=== PATIENT | female | born 1940 | race Caucasian/White ===

== ENCOUNTER 2024-01-20 15:22 | Emergency (ER) | payer MEDICARE, SELFPAY ==
[2024-01-20 15:25] VITALS: BP 161/93; BMI 20.8
--- NOTE | 2024-01-20 16:24 | ED.GENMED ---
History of Present Illness
General
Chief Complaint: Musculo-Skeletal Complaint
Source: patient
Time Seen by Provider: 01/20/24 16:14
Travel History
Have you had any contact with someone who has COVID-19?: No
Do you have any symptoms of coronavirus? Fever > 100 degrees, chills, cough, shortness of breath, sore throat, loss of taste or smell, muscle aches, or headache?: No
History of Present Illness
History of Present Illness:
83-year-old female with past medical history of mitral valve disease presenting to the emergency department for evaluation of left-sided rib pain that started 3 days ago after patient had bent over a garbage can having the garbage can press into her
chest wall causing her pain. Patient states that the pain was mild to moderate over the last 2 days but today seem to be a little bit more persistent prompting her to come to the ER as she was concerned she may have broken a rib. Patient denies
any other injuries sustained. She denies any difficulty breathing, coughing, fevers, shortness of breath, palpitations, diaphoresis or any other symptoms.
Past History
Past History
ED Past Medical History: Valvular disease
ED Past Surgical History: None
Social History
Tobacco: Non-smoker
Alcohol: Occasional
Drug: None
Personal:
Living: with family
Review of Systems
Review of Systems
All Other Systems: ROS reviewed and negative except as documented in HPI and ROS
Phy Exam
Physical Exam
Physical Exam:
GENERAL: Alert , in no apparent distress
EYE: conjunctiva clear
NECK: Supple
ENT: o/p clr, mmm.
CARDIAC: Regular rate and rhythm, systolic murmur heard best at the left sternal border
LUNGS: Clear breath sounds bilaterally, no acute respiratory distress, no wheezes/rales/rhonchi, clearly reproducible chest wall tenderness just inferior to the left breast
NEUROLOGICAL: Alert and oriented
SKIN: Warm and dry, skin intact.
MUSCULOSKELETAL: well perfused.
PSYCH: Normal and appropriate interaction.
Scores
Heart Failure Risk
Heart Failure Risk Score: Not Applicable
Heart Score for Chest Pain Patients
STEMI patient?: Not applicable
Withdrawal Assessment of Alcohol
Withdrawal Assessment Completed?: Not applicable
Course
Orders/Labs/Results
Orders:
Orders
01/20/24 15:24
CXR2 [CR Chest - 2 Views ] Urgent
Comment:
Reason For Exam: left rib pain
01/20/24 16:23
Electrocardiogram (*1) Urgent
Reason for Study: Chest Pain
EKG- Treatment ONCE
Vital Signs
Initial and Last Documented VS:
Initial Vital Signs
Temp Pulse Resp BP Pulse Ox
98.2 F 69 16 161/93 99
01/20/24 15:25 01/20/24 15:25 01/20/24 15:25 01/20/24 15:25 01/20/24 15:25
Last Documented Vital Signs
Temp Pulse Resp BP Pulse Ox
98.2 F 69 16 161/93 99
01/20/24 15:25 01/20/24 15:25 01/20/24 15:25 01/20/24 15:25 01/20/24 15:25
MDM/Problems Addressed
Differential Diagnosis Includes:
Rib fracture, costochondral injury, will check an EKG although ACS is certainly much lower on differential given the reproducible pain as well as the mechanism of her injury
MDM/Problems Addressed:
83-year-old female present emergency department for evaluation of left chest wall pain started after bending over a garbage can. Pain worsened today prompting her to come to the emergency department. Exam does seem to be most consistent with a
muscular etiology for her pain however given the worsening nature and location of her pain we will check an EKG. X-ray was ordered from triage which did not show any acute abnormalities. I did discuss with the patient that he have a very small or
subtle nondisplaced rib fracture which could be potentially missed on x-ray as well as possibility for a costochondral injury which would not be seen on imaging here. Patient will continue NSAIDs/Tylenol as needed for pain. Follow-up with primary
care provider. She will otherwise be stable for discharge home.
*Pulse Oximetry
Patient hypoxic: no
*EKG
Interpreted by ED Provider?: Yes
Comparison EKG: no changes
Heart Rate: 64
Rate: normal
Rhythm: sinus
[place]: left axis deviation
Ischemia: no ischemia
*Critical Care Note
Total Time (30-74mins, 75-104mins- exclusive of procedures): Not Applicable
ED Attending Note
-
Portions of this chart may have been created with voice recognition software.� Occasional wrong word or��sound alike� substitutions may have occurred due to the inherent limitations of voice recognition software.
Discharge Plan
Departure
Patient Disposition: Home (Routine Discharge)
Date of Disposition: 01/20/24
Time of Disposition: 16:44
Patient with high blood pressure during this ER visit?: Yes
Discharge Problem:
Left-sided chest wall pain
Instructions: Costochondritis (DC)
Prescriptions:
No Action
Paxlovid 300 mg (150 mg x 2)-100 mg tablets,dose pack
See Rx Instructions .ROUTE .COMPLEX Qty: 30 0RF
Rx Instructions:
take TWO 150 mg tablets of nirmatrelvir with ONE 100 mg tablet of ritonavir twice daily for 5 days
Interventions
Interventions:
*Risk Screen - Suicide Last Done: 01/20/24 15:25
*General Assessment Last Done: 01/20/24 15:25
*Neglect/Abuse Screening Last Done: 01/20/24 15:25
*ED COVID-19 Vaccine History Last Done: 01/20/24 15:25
Discharge Date and Time
Print Language: [place]
[2024-01-20 17:01] VITALS: BP 149/74
== END 2024-01-20 17:17 | disposition home or self-care (01) ==
LOC: EMR 15:22
PROVIDERS: EMERGENCY PHYSICIAN Emergency Medicine
DX: R07.89 Other chest pain (principal); X50.1XXA Overexertion from prolonged static or awkward postures, initial encounter; R03.0 Elevated blood-pressure reading, without diagnosis of hypertension
CPT/HCPCS: 99284; 71046; 93005

== ENCOUNTER → 2024-02-26 10:14 | Outpatient (REF) | payer MEDICARE, SELFPAY | LOC: WDC 10:14 | PROVIDERS: ATTENDING PHYSICIAN Physician Assistant Medical; FAMILY PHYSICIAN Family Medicine | DX: N64.4 Mastodynia (principal); N63.10 Unspecified lump in the right breast, unspecified quadrant; N64.59 Other signs and symptoms in breast | CPT/HCPCS: 76642; 77062; 77066 ==

== ENCOUNTER 2025-04-12 06:52 | Emergency (ER) | payer MEDICARE, SELFPAY ==
[2025-04-12 06:54] VITALS: BP 134/73
[2025-04-12 07:46] VITALS: BMI 20.6
--- NOTE | 2025-04-12 08:10 | ED.GENMED ---
History of Present Illness
General
Chief Complaint: Abdominal Pain
Time Seen by Provider: 04/12/25 07:26
History of Present Illness
History of Present Illness:
84-year-old female with history of IBS presents to the emergency department for evaluation of intense abdominal cramping that occurred this morning. She notes she has felt constipated for several days, typically improves with MiraLAX or oral
Dulcolax however this did not help today that she used Dulcolax suppository. It was shortly after using this that she developed intense cramping and passage of moderate volume of loose stool. She reports her abdominal distention and cramping is
since resolved but she is concerned about the degree of pain she felt. Denies any fevers, chills, sweats, nausea, vomiting, weight loss. 'Many years' since her last colonoscopy. Sees a damage appraiser in [place].
Past History
Past History
ED Past Medical History: Valvular disease
ED Past Surgical History: None
Social History
Tobacco: Non-smoker
Alcohol: Occasional
Drug: None
Personal:
Living: with family
Review of Systems
Review of Systems
Allergies reviewed?: Yes
All Other Systems: ROS reviewed and negative except as documented in HPI and ROS
Phy Exam
Physical Exam
Physical Exam:
GEN: Well appearing, NAD, WDWN
HEENT: Oral mucosa moist, no scleral icterus
Cardiac: Regular rate
Lung: No respiratory distress, no tachypnea
Abdomen: Soft, grossly nontender to palpation, no rigidity or distention
MSK: No gross deformity or injuries
Skin: Good color, no pallor or jaundice, no rashes
Neuro: AO x3, moves all extremities freely
Psych: Calm, cooperative
Course
Orders/Labs/Results
Orders:
Orders
04/12/25 07:43
CR Obstruct Series W/pa Chest Urgent
Comment:
Reason For Exam: bloating
Vital Signs
Initial and Last Documented VS:
Initial Vital Signs
Temp Pulse Resp BP Pulse Ox
97.5 F 60 16 134/73 99
04/12/25 06:54 04/12/25 06:54 04/12/25 06:54 04/12/25 06:54 04/12/25 06:54
Last Documented Vital Signs
Temp Pulse Resp BP Pulse Ox
97.5 F 60 16 134/73 99
04/12/25 06:54 04/12/25 06:54 04/12/25 06:54 04/12/25 06:54 04/12/25 08:11
MDM/Problems Addressed
MDM/Problems Addressed:
I suspect her symptoms were due to severe intestinal spasms in the setting of laxative use with being constipated. She is asymptomatic here thus is suitable for discharge
*Pulse Oximetry
SaO2: 99
Oxygen Mode of Delivery: Room air
Patient hypoxic: no
*Critical Care Note
Total Time (30-74mins, 75-104mins- exclusive of procedures): Not Applicable
ED Attending Note
-
Portions of this chart may have been created with voice recognition software.� Occasional wrong word or��sound alike� substitutions may have occurred due to the inherent limitations of voice recognition software.
Discharge Plan
Departure
Patient Disposition: Home (Routine Discharge)
Date of Disposition: 04/12/25
Time of Disposition: 09:03
Patient with high blood pressure during this ER visit?: No
Discharge Problem:
Constipation
Instructions: Constipation, Adult (DC)
Prescriptions:
New
hyoscyamine sulfate 0.125 mg tablet
0.125 mg PO QID Qty: 20 0RF
No Action
Paxlovid 300 mg (150 mg x 2)-100 mg tablets,dose pack
See Rx Instructions .ROUTE .COMPLEX Qty: 30 0RF
Rx Instructions:
take TWO 150 mg tablets of nirmatrelvir with ONE 100 mg tablet of ritonavir twice daily for 5 days
Referrals:
UNKNOWN - PT NOT,INTERVIEWE [Family Provider]
Interventions
Interventions:
*Risk Screen - Suicide Last Done: 04/12/25 06:54
*General Assessment Last Done: 04/12/25 07:45
*Neglect/Abuse Screening Last Done: 04/12/25 06:54
*ED COVID-19 Vaccine History Last Done: 04/12/25 07:45
Discharge Date and Time
Print Language: [place]
== END 2025-04-12 09:03 | disposition home or self-care (01) ==
LOC: EMR 06:52
PROVIDERS: EMERGENCY PHYSICIAN Student in an Organized Health Care Education/Training Program
DX: K59.00 Constipation, unspecified (principal); K58.0 Irritable bowel syndrome with diarrhea
CPT/HCPCS: 99283; 74022

== ENCOUNTER 2025-06-16 03:03 | Emergency (ER) | payer MEDICARE, SELFPAY ==
[2025-06-16 03:07] VITALS: BP 137/78
--- NOTE | 2025-06-16 03:42 | ED.GENMED ---
History of Present Illness
General
Chief Complaint: Eye Problems
Source: patient
Exam Limitations: none
Time Seen by Provider: 06/16/25 03:15
Nursing documentation reviewed up to this point in time: agreed with
History of Present Illness
History of Present Illness:
84-year-old female with past medical history of IBS, skin cancer, mitral valve disorder presents emergency department today with concerns of some right eye pain awakening her from sleep this morning. Patient reports that her right eye feels
scratchy and it feels like there is a foreign body in her eye. This was accompanied by significant tearing. Patient reports that she did not get anything in her eye this past day does not recall any possible foreign body. She reports that she
subsequently used eyewash she had at home to rinse out her eye and she noted a moderate improvement of her symptoms. Pain has improved but scratchy sensation persists. Secondarily, the patient also is concerned about floaters she noted in her left
eye over the past 3 days. The floaters occur intermittently. Floaters are described as dots appearing in her peripheral vision and not associated with visual loss. Patient reports that she is supposed to get cataract surgery in that eye and so
she does experience intermittent blurry vision. She also has astigmatism in the left eye. She denies central visual loss. She denies sensation of curtain going down over her vision. She does not wear contacts or glasses at baseline. She is
unaware of her baseline visual acuity. 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 Pacheco a few years ago. Patient denies a
headache accompanying the symptoms, denies neck pain, chest pain, shortness of breath. Denies any nausea or vomiting. Denies any recent trauma to the eye or purulent drainagePatient denies flashes in her vision, no history of progressive visual
loss. Visual changes have not significantly worsened over the past few days, they have remained the same. Patient has not had any surgical intervention in the left eye.
Past History
Past History
ED Past Medical History: Valvular disease
ED Past Surgical History: None
Social History
Tobacco: Non-smoker
Alcohol: Occasional
Drug: None
Personal:
Living: with family
Review of Systems
Review of Systems
All Other Systems: ROS reviewed and negative except as documented in HPI and ROS
Phy Exam
Physical Exam
Physical Exam:
General: Patient is well appearing and in no acute distress; non-toxic
Skin: Warm and dry, no rashes or lesions
Head: Normocephalic, atraumatic
Eyes: Sclera non-icteric. EOMs intact. No scleral erythema noted. PERRLA. No pain with accommodation. No visible foreign body. Intraocular pressure normal right eye 10 mmHg. 3 mm linear fluorescein uptake noted to right cornea no evidence of
ulceration. Peripheral visual post intact bilaterally.
Cardiac: Regular rate
Pulm: Normal respiratory effort
Neuro: CN II-XII intact, no focal neurologic deficits. Normal finger-nose, [id number]. Normal gait.
Psychiatric: Appropriate mood and affect.
Course
Orders/Labs/Results
Orders:
Orders
06/16/25 03:18
Visual Acuity- Treatment ONCE
06/16/25 03:19
Tetracaine HCl [Tetracaine 0.5% Ophthalmic Solution] 1 drop .ROUTE .STK-MED ONE
06/16/25 03:20
Fluorescein Sodium [Ful-Soledad] 3 mg .ROUTE .STK-MED ONE
06/16/25 04:15
Erythromycin (Ilotycin) [Erythromycin 0.5% Ophthalmic Ointment] See Dose Instructions OPHTH NOW STA
06/16/25 04:31
Tetracaine HCl [Tetracaine 0.5% Ophthalmic Solution] 1 drop .ROUTE .STK-MED ONE
06/16/25 04:32
Purified Water Eye Wash [Dacriose Eye Wash Solution] 120 ml .ROUTE .STK-MED ONE
Vital Signs
Initial and Last Documented VS:
Initial Vital Signs
Temp Pulse Resp BP Pulse Ox
97.4 F 61 20 137/78 98
06/16/25 03:07 06/16/25 03:07 06/16/25 03:07 06/16/25 03:07 06/16/25 03:07
Last Documented Vital Signs
Temp Pulse Resp BP Pulse Ox
97.4 F 61 20 137/78 98
06/16/25 03:07 06/16/25 03:07 06/16/25 03:07 06/16/25 03:07 06/16/25 03:44
MDM/Problems Addressed
Differential Diagnosis Includes:
ddx include catarax, astigmatism, corneal abrasion, macular degeneration, vascular disease,
MDM/Problems Addressed:
84-year-old female with past medical history of IBS, skin cancer, mitral valve disorder presents emergency department today with concerns of some right eye pain awakening her from sleep this morning. Patient reports that her right eye feels
scratchy and it feels like there is a foreign body in her eye. Symptoms did improve after patient rinsed out her eye at home however scratchiness persist. On physical exam, she does have 3 mm linear corneal abrasion. Patient will start
antibiotics, patient originally wanted ointment which was given here but patient changed her mind and would rather have drops. These were sent to patient's pharmacy.
Patient has also been complaining of intermittent floating dots out of her left eye. She notices these in her peripheral vision. She denies any central symptoms. There is no associated visual loss. No associated pain. No associated headaches or
other neurologic symptoms. During my exam, the floaters did resolve and have not returned during the remainder of the visit. Peripheral visual post intact. Again, no associated visual loss, no flashes of light, no curtain coming down visual
field. Very low suspicion for retinal detachment and posterior vitreous detachment.
Considering symptoms have been intermittent, have not been progressive, unremarkable exam, suspect related to existing cataract and astigmatism in that left eye. Nonetheless, patient will need prompt ophthalmology follow-up and complete ocular
exam. Patient has been seen by Devon Merino in the past advised patient to call the office at 8 AM this morning. Also sent message to Dr. Osorio via [facility] text to help facilitate prompt follow-up. Patient will call office today and will
return to the ER should she develop any acute worsening of her symptoms. Discussed strict return precautions. Patient stable for discharge.
*Pulse Oximetry
SaO2: 98
Oxygen Mode of Delivery: Room air
Patient hypoxic: no
*Critical Care Note
Total Time (30-74mins, 75-104mins- exclusive of procedures): Not Applicable
Data Reviewed
Review of Other/Old Records Reveals: Records
Update Note
Update Note:
Update, during my ocular exam floaters did resolve. She states that they come and go at random.
Update, patient states that she prefers the drops rather than the ointment after she received a dose of the ointment in the ER. Will send drops to patient's pharmacy. Patient reports that the floaters are currently not bothering her.
ED Attending Note
-
Portions of this chart may have been created with voice recognition software.� Occasional wrong word or��sound alike� substitutions may have occurred due to the inherent limitations of voice recognition software.
Discharge Plan
Departure
Patient Disposition: Home (Routine Discharge)
Date of Disposition: 06/16/25
Time of Disposition: 04:39
Patient with high blood pressure during this ER visit?: Yes
Condition: Good
Discharge Problem:
Corneal abrasion, Floaters in visual field
Instructions: Corneal Abrasion (DC), Floaters in the Eye, BLOOD PRESSURE
Prescriptions:
New
gentamicin 0.3 % drops
2 drp ophthalmic (eye) QID 5 Days Qty: 5 0RF
No Action
Paxlovid 300 mg (150 mg x 2)-100 mg tablets,dose pack
See Rx Instructions .ROUTE .COMPLEX Qty: 30 0RF
Rx Instructions:
take TWO 150 mg tablets of nirmatrelvir with ONE 100 mg tablet of ritonavir twice daily for 5 days
hyoscyamine sulfate 0.125 mg tablet
0.125 mg PO QID Qty: 20 0RF
Referrals:
Emre Biggs DO [Family Provider, Internal Medicine]
Matthew Pacheco MD [Active, Ophthalmology] - Tomorrow
Activity Restrictions/Additional Instructions:
[facility] opens at 8 am. Please call at 8 am when the office opens.

Please apply 2 drops in the affected eye 4 times daily for 5 days. Please continue to monitor your symptoms. Please call Dr. Pacheco's office.
PLEASE RETURN TO THE ER SHOULD YOU DEVELOP RADAMES VISUAL LOSS, CURTAIN COMING DOWN IN YOUR VISUAL FIELD, FLASHES OF LIGHT, HEADACHE, NAUSEA AND VOMITING, CHEST PAIN, SHORTNESS OF BREATH, OR ANY OTHER SIGNS OR SYMPTOMS CONCERNING TO YOU.
Interventions
Interventions:
*Risk Screen - Suicide Last Done: 06/16/25 03:07
*General Assessment Last Done: 06/16/25 03:07
*Neglect/Abuse Screening Last Done: 06/16/25 03:07
*ED- Fall Risk Assessment Last Done: 06/16/25 03:07
*ED COVID-19 Vaccine History Last Done: 06/16/25 03:07
*Nursing Disposition Last Done: 06/16/25 05:02
Discharge Date and Time
Discharge Date/Time: 06/16/25 05:03
Print Language: [email or web address]
[2025-06-16 03:43] VITALS: BMI 21.1
[2025-06-16] MEDS: ERYTHROMYCIN 0.5% OPHTHALMIC OINTMENT 1 APPLIC OPHTH (04:26)
== END 2025-06-16 05:03 | disposition home or self-care (01) ==
LOC: EMR 03:03
PROVIDERS: EMERGENCY PHYSICIAN Emergency Medicine; FAMILY PHYSICIAN Internal Medicine
DX: S05.01XA Injury of conjunctiva and corneal abrasion without foreign body, right eye, initial encounter (principal); H43.392 Other vitreous opacities, left eye; R03.0 Elevated blood-pressure reading, without diagnosis of hypertension; I05.9 Rheumatic mitral valve disease, unspecified; K58.9 Irritable bowel syndrome, unspecified; Z85.828 Personal history of other malignant neoplasm of skin; X58.XXXA Exposure to other specified factors, initial encounter
CPT/HCPCS: 99283